=== PATIENT | female | born 1990 | race Caucasian/White ===

== ENCOUNTER 2024-10-27 16:23 | Emergency (ER) | payer MEDICAID, SELFPAY ==
[2024-10-27 16:27] VITALS: BP 134/91; PULSE 110; RESP 18; TEMP 37.3; O2SAT 98; BMI 44.4
--- NOTE | 2024-10-27 16:33 | EDNOTE_ITS ---
<Statement entered by Mercedez Gustafson MD - 10/28/24 19:21> As co-signing physician, I was present and available for consult prn. I concur with the plan and care as documented by the midlevel provider. ED OB Contraction Preg RMI/HPI General Chief complaint: Vaginal Bleeding Stated complaint: VAG BLEEDING Time Seen by Provider: 10/27/24 16:28 Arrival date/time: 10/27/24 16:23 RME / HPI RME / HPI Narrative: 34-year-old female patient, 3 para 2, about 11 weeks , came in for evaluation regarding complaints of vaginal spotting. Onset of symptoms earlier today as vaginal spotting, severity moderate. Patient denies any pelvic pain but complains of low back pain denies any dysuria denies any dizziness denies any other complaints. Seen by SOFTWARE RELEASE ENGINEER once last 3 weeks ago. Related Data Previous Rx's ?Medication ?Instructions ?Recorded clindamycin HCl 150 mg capsule 450 mg (3 x 150 mg) PO TID #30 caps 07/02/20 ibuprofen 800 mg tablet 800 mg PO TID PRN pain #30 tabs 07/15/23 Allergies Allergy/AdvReac Type Severity Reaction Status Date / Time No Known Allergies Allergy Unknown Verified 07/15/23 13:27 Review of Systems Review of Systems Narrative Review of Systems: Review of system reviewed and within normal limits except mentioned in HPI ED Exam Narrative Physical exam: VITAL SIGNS: Reviewed. GENERAL APPEARANCE: Alert and interactive, follows commands, no acute distress, HEAD AND FACE: Non-traumatic. ENT: PERRL, pink conjunctivitis, eyelid no trauma, Mucous membrane moist. NECK: Supple, nontender, no nuchal rigidity. CHEST: No tenderness, no crepitus, no paradoxical movement, no retractions. LUNGS: Clear, well ventilated, symmetric, no rales, no wheezing, no ronchi, no stridor, good breath sounds bilaterally. HEART: Regular rate, regular rhythm, no murmur, no gallops. ABDOMEN: Soft, positive bowel sounds, nondistended, no guarding, nontender, no rebound, no masses, RECTAL: Deferred. GENITAL: Deferred. NEUROLOGICAL: Gross motor function intact sensory function intact, Appropriate for age. MUSCULOSKELETAL: low back nontender, full range of motion. EXTREMITIES: Nontender, full range of motion. SKIN: Color pink, dry, no rash, no lacerations, no abrasions, no contusions. LYMPHATICS: Deferred. Course Quality Measures none Orders Category Date Time Status US OB transvaginal Stat Exams 10/27/24 17:21 Completed ABO/RH Type Stat Lab 10/27/24 16:44 Completed Basic Metabolic Panel Stat Lab 10/27/24 16:44 Completed Beta HCG,Quantitative Stat Lab 10/27/24 16:44 Completed CBC Stat Lab 10/27/24 16:44 Completed Urinalysis Stat Lab 10/27/24 18:24 Completed Vital Signs Vital signs: Vital Signs Temperature 99.1 F 10/27/24 16:27 Pulse Rate 110 H 10/27/24 16:27 Respiratory Rate 18 10/27/24 16:27 Blood Pressure 134/91 H 10/27/24 16:27 Pulse Oximetry (%) 98 10/27/24 16:27 Oxygen Delivery Method Room Air 10/27/24 16:27 Vaginal Bleeding MDM Narrative MDM Narrative: 34-year-old female patient, 3 para 2, about 11 weeks , came in for evaluation regarding complaints of vaginal spotting. Onset of symptoms earlier today as vaginal spotting, severity moderate. Patient denies any pelvic pain but complains of low back pain denies any dysuria denies any dizziness denies any other complaints. Seen by SOFTWARE RELEASE ENGINEER once last 3 weeks ago. Patient data External records reviewed:: None Clinical information provided by:: none Social determinants that could affect healthcare access:: none Patient has the following chronic illnesses:: None How is presenting disease/condition affected by chronic disease/condition?: no chronic disease Evaluation data The following diagnostics were reviewed and interpreted by me:: lab results and radiology exam(s) Lab and/or radiology exams considered but not ordered:: None Interpretation Summary: [place] [address]. Urinalysis no UTI. Ultrasound of the showed consistent with demise, no cardiac activity noted results discussed with the patient family. Medications / Prescriptions Medications or Prescriptions considered but not ordered:: None Medication administrations:: None Consultations Consultation(s) initiated? (list below): No Diagnosis Vaginal Bleeding Differential Diagnosis: threatened , vaginal bleeding and other ( demise) Most likely diagnosis given after review of the tests above:: demise Admission Indicated Admission indicated?: not indicated Admission Request Was there a request for admission?: No Disposition Plan Disposition Plan: Discharge Discharge Attestation Discharge Attestation: The patient and all family members were given an opportunity to ask questions and understood the discharge instructions. Discharge instructions specifically effects, indications for sooner follow up or return to the emergency department, and the expected course of current diagnosis. Patient condition: Stable Discharge Plan Plan Patient Disposition: HOME (Self Care) Disposition Comment: stable Prescriptions/Referrals Prescriptions/Med Rec: No Action clindamycin HCl 150 mg capsule 450 mg PO TID Qty: 30 0RF ibuprofen 800 mg tablet 800 mg PO TID PRN (Reason: pain) Qty: 30 0RF Referrals: Salvador Viramontes MD [Primary Care Provider] - In 1 week Problem List Clinical Impression: Vaginal bleeding, demise Patient/Caregiver Discharge Instructions Education Materials: Understanding Uterine Bleeding Additional Instructions: Thank you for the opportunity for serving you today. You are stable for discharged . You are advised to: Follow-up with your SOFTWARE RELEASE ENGINEER in the morning for repeat hCG and ultrasound Return to ED for worsening of symptoms Increase oral fluids Print Language: Bangladeshi Stand Alone Forms: Stephanie Award Info., Patient Portal Info Letter PA/GAS STOVE SERVICER HELPER Supervising Physician PA/G[employer] STOVE SERVICER HELPER Supervising Physician: MD Janay
[2024-10-27 17:04] LABS: Basophils % (Auto) 0 % (0-2.5); Eosinophils # (Auto) 0.1 Thou/mm3 (0.0-0.5); Eosinophils % (Auto) 2 % (0-10); Hematocrit 38.3 % (36.0-46.0); Hemoglobin 12.9 g/dL (12.0-16.0); Immature Granulocytes % (Auto) 0 % (0-0); Immature Granulocytes Auto 0.02 Thou/mm3 (0.00-0.00); Lymphocytes % (Auto) 24 % (10-50); Mean Corpuscular HGB Conc 33.7 g/dl (31.0-37.0); Mean Corpuscular Volume 86 fL (80-100); Monocytes # (Auto) 0.5 Thou/mm3 (0.0-0.8); Monocytes % (Auto) 6 % (0-12); Neutrophils # (Auto) 5.8 Thou/mm3 (1.8-7.7); Neutrophils % (Auto) 69 % (37-80); Nucleated Red Blood Cell % 0 /100 WBC (0); Platelet Count 365 Thou/mm3 (140-440); RDW Standard Deviation 41.7 fL (36.4-46.3); Red Blood Count 4.45 Miln/mm3 (4.00-5.20); White Blood Count 8.4 Thou/mm3 (3.6-11.0)
--- NOTE | 2024-10-27 17:21 | XR_ITS ---
Examination: OB Transvaginal ultrasound of the pelvis, complete Technique: Transvaginal sonographic images pelvis performed using saeed scale imaging Exam date and time: October 27, 2024 1723 hrs. Indications: Vaginal bleeding beginning today Findings: Uterus 10.0 x 6.7 x 7.7 cm Intrauterine gestation pole 2.2 cm corresponds to 8 week 6 day gestational age No heart tones Subchorionic hemorrhage 21 x 11 x 20 mm Right ovary obscured by bowel gas Left ovary 3.9 x 1.9 x 2.2 cm arterial flow, 15 mm 18 mm cyst with internal echoes Impression: Findings most consistent with demise, no cardiac motion.
[2024-10-27 17:25] LABS: Anion Gap 8 (7-16); BUN/Creatinine Ratio 13 Ratio (12-20); Blood Urea Nitrogen 9 mg/dL (9-23); Calcium 9.8 mg/dL (8.3-10.6); Carbon Dioxide 25.9 mMol/L (20.0-31.0); Chloride 103 mMol/L (98-107); Creatinine (Component) 0.7 mg/dL (0.6-1.3); Glucose 96 mg/dL (74-106); Osmolality,Calculated 272 (275-295); Sodium 137 mMol/L (136-145); eGFR > 60 See Note
[2024-10-27 18:16] LABS: Beta HCG,Quantitative 11215 mIU/mL (<5.0)
[2024-10-27 18:30] LABS: Collection Type, Urine Clean Catch; WBC,Urine 0 /hpf (0-5)
[2024-10-27 18:44] LABS: Bacteria,Urine Rare; Bilirubin,Urine Negative (Negative); Blood,Urine 1+ (Negative); Clarity,Urine Clear (Clear/Hazy); Color,Urine Colorless (Lt Yel-Yel); Glucose, Urine Negative (Negative); Ketones,Urine Negative (Negative); Leukocyte Esterase,Urine Negative (Negative); Nitrite,Urine Negative (Negative); PH,Urine 6.5 (5.0-7.0); Protein,Urine Negative (Neg - Trace); RBC,Urine 1 /hpf (0-3); Specific Gravity,Urine 1.005 (1.001-1.035); Squamous Epithelial Cell,Urine 1 /hpf (0-5); Urobilinogen,Urine Negative mg/dL (0.0-1.0)
== END 2024-10-27 20:44 | disposition home or self-care (01) ==
PROVIDERS: Nurse Practitioner Family; Emergency Provider Emergency Medicine; PCP Family Medicine
DX: O02.1 Missed abortion (principal); Z3A.11 11 weeks gestation of pregnancy
CPT/HCPCS: 36415; 76817; 80048; 81001; 84702; 85025; 86900; 86901; 99284